=== PATIENT | female | born 1975 | race African-American/Black ===

== ENCOUNTER 2017-04-06 08:30 | Emergency (ER) | payer SELFPAY ==
[~2017-04-06] VITALS: Ht 157.5 cm; Wt 116.0 kg
[~2017-04-06 08:30] MED LIST: BENZ100 PO; GUAI600 PO; LORA10 PO; TYLCOD5S PO; Trimethoprim/Sulfamethoxazole PO
[2017-04-06 08:31] VITALS: BP 127/70; PULSE 94; RESP 16; TEMP 99.1; O2SAT 98
--- NOTE | 2017-04-06 10:09 | RADRPT ---
EXAM DATE/TIME: 04/06/2017 09:48 [place] COMPARISON: No previous studies available for comparison. INDICATIONS : Rolled left ankle stepping off a curb last night, pain 360 degrees around left ankle. History of smal l avulsion fracture of left fibula 4 years ago MEDICAL HISTORY : None. SURGICAL HISTORY : None. ENCOUNTER: Initial ACUITY: 1 day PAIN SCORE: 10/10 LOCATION: Left ankle FINDINGS: Diffuse soft tissue swelling about the ankle. Slight cortical irregularity involving the medial malle olus without definite fracture line. This may be related to previous injury. Osseous structures appea r intact without evidence for acute bony fracture. Talar dome is intact. Joint spaces are maintained. Plantar calcaneal spurring is noted. CONCLUSION: 1. Slight cortical irregularity involving the medial malleolus without definite fracture line which m ay be related to prior injury. Correlation with point of maximal tenderness is recommended. 2. Diffuse soft tissue swelling. Tevin Connolly MD on April 06, 2017 at 10:04 Board Certified Radiologist. This report was verified electronically.
[2017-04-06] MEDS ORDERED: IBUPROFEN 800 MG TAB PO ONE (10:30)
--- NOTE | 2017-04-06 10:43 | PD ---
HPI . Left ankle pain Chief Complaint: Injury Time Seen by Provider: 10:09 Travel History International Travel<30 days: No Contact w/Intl Traveler<30days: No Traveled to known affect area: No History of Present Illness HPI 41-year-old female presents to the emergency room for evaluation of left ankle pain that started yesterday when she stepped off a curb and twisted her ankle. Patient states she has been having difficulty bearing weight on the ankle since. The patient denies any major medical history. She does not take any daily medication. PFSH Past Medical History Asthma: Yes Autoimmune Disease: Yes (HIV +) Blood Disorders: No Depression: Yes Cancer: Yes (ovarian) Cardiovascular Problems: No Chemotherapy: No Diminished Hearing: No Endocrine: No Genitourinary: No Immune Disorder: Yes (HIV) Musculoskeletal: Yes Neurologic: No Psychiatric: No Reproductive: No Respiratory: Yes Immunizations Current: No Radiation Therapy: No ?: Not LMP: 04/05/17 : 6 Para: 4 Miscarriage: 1 : 1 Tubal Ligation: Yes Past Surgical History Section: Yes Other Surgery: Yes (C SECTION 2000) Social History Alcohol Use: No Tobacco Use: No Substance Use: No Allergies-Medications (Allergen,Severity, Reaction): Coded Allergies: penicillin G (Verified Allergy, Severe, RASH , 04/06/17) *MDRO Multi-Drug Resistant Organism (Verified Allergy, Unknown, 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 Nontoxic appearing. SKIN: Focused skin assessment warm/dry. HEAD: Normocephalic. Atraumatic. NECK: Supple, trachea midline. No JVD or lymphadenopathy. CARDIOVASCULAR: Regular rate and rhythm without murmurs, gallops, or rubs. Pulses +2 bilaterally. RESPIRATORY: Breath sounds equal bilaterally. No accessory muscle use. GASTROINTESTINAL: Abdomen soft, non-tender, nondistended. MUSCULOSKELETAL: Left ankle tenderness to palpation and edematous and limited range of motion with both dorsi and pedal flexion. Data Data Last Documented VS Vital Signs Date Time Temp Pulse Resp B/P (MAP) Pulse Ox O2 Delivery O2 Flow Rate FiO2 04/06/17 08:31 99.1 94 16 127/70 (89) 98 Orders Orders Ice/Cold Pack (04/06/17 09:41) Ankle, Complete (Irr1avv) (04/06/17 09:41) Ibuprofen (Motrin) (04/06/17 10:30) Splint Or Brace Apply/Monitor (04/06/17 10:43) Crutches (04/06/17 10:43) MDM Medical Decision Making Medical Screen Exam Complete: Yes Emergency Medical Condition: Yes Differential Diagnosis Differential diagnosis includes but not limited to ankle fracture, ankle contusion, ankle sprain Narrative Course 41-year-old female presents to the emergency room for evaluation of left ankle pain. The ankle is edematous, warm to the touch with no obvious deformity or erythema. The left foot is neurovascularly intact. The patient has limited range of motion with dorsi pedal flexion secondary to the pain and swelling. X- ray of the left ankle ordered and shows slight cortical irregularity involving the medial bowel is without definite fracture line. Diffuse soft tissue swelling. Patient will be put in a posterior short leg splint and discharged home with a prescription for naproxen and a mandatory outpatient orthopedic referral. Last Impressions Ankle X-Ray 04/06/17940 Signed Impressions: Service Date/Time: Thursday, April 06, 2017 09:48 - CONCLUSION: 1. Slight cortical irregularity involving the medial malleolus without definite fracture line which may be related to prior injury. Correlation with point of maximal tenderness is recommended. 2. Diffuse soft tissue swelling. Tevin Connolly MD Diagnosis Primary Impression: Injury of ankle, left Qualified Codes: S99.912A - Unspecified injury of left ankle, initial encounter Referrals: Arminda Baker MD Patient Instructions: Ankle Sprain (DC), General Instructions Additional Instructions: Please return to emergency department if your symptoms return or worsen. Follow up with orthopedics. Mandatory referral in place. Take medications as prescribed. Rice therapy to left ankle, rest, ice, splint and crutches and elevate when resting Med/Other Pt SpecificInfo: Prescription(s) given Scripts Naproxen Sodium (Naproxen Sodium) 220 Mg Tab 440 MG PO BID Y for Pain Management, #10 TAB 0 Refills Prov: Chey Du 04/06/17 Disposition: 01 DISCHARGE HOME Condition: Stable Chey Du Apr 06, 2017 10:43
[2017-04-06] MEDS ORDERED: MEDI220T PO (10:51)
== END 2017-04-06 12:14 | disposition home or self-care (01) ==
LOC: NEPA 08:30
DX: S99.912A Unspecified injury of left ankle, initial encounter (principal); J45.909 Unspecified asthma, uncomplicated; F32.9 Major depressive disorder, single episode, unspecified; Z88.0 Allergy status to penicillin; Z21 Asymptomatic human immunodeficiency virus [HIV] infection status; W10.1XXA Fall (on)(from) sidewalk curb, initial encounter
CPT/HCPCS: 29515; 73610; 99283; E0113